=== PATIENT | male | born 1970 | race Caucasian/White ===

== ENCOUNTER 2023-07-25 18:23 | Inpatient (IN) | payer SELFPAY ==
[~2023-07-25] VITALS: Ht 188 cm; Wt 95.7 kg
[2023-07-25] MEDS ORDERED: InsuLIN REG 1unit/0.01ml Soln (100units/ml) IV ONE (19:45)
[2023-07-25] MEDS ORDERED: SODIUM CHLORIDE 0.9% 1,000 ML IV ONE (19:45)
[2023-07-25 20:13] LABS: Basophils # (auto) 0 10 ^3/uL (0-0.2); Basophils % (auto) 0.4 % (0.0-2.0); Eosinophils # (auto) 0 10 ^3/uL (0-0.8); Eosinophils % (auto) 0.2 % (0.0-7.0); Hematocrit 45.4 % (41.0-53.0); Hemoglobin 14.8 g/dL (13.5-17.5); Lymphocytes # (auto) 1.7 10 ^3/uL (0.4-5.4); Lymphocytes % (auto) 15.1 % (10.0-50.0); Mean Corpuscular Hemoglobin 29.3 pg (28.0-32.0); Mean Corpuscular Hgb Conc. 32.6 g/dL (32.0-36.0); Mean Corpuscular Volume 89.8 fL (80.0-100.0); Monocytes # (auto) 0.6 10 ^3/uL (0-1.3); Monocytes % (auto) 4.9 % (0.0-12.0); Neutrophils # (auto) 9.2 10 ^3/uL (1.6-8.6); Neutrophils % (auto) 79.4 % (37.0-80.0); Nucleated Red Blood Cells % 0.1 %; Red Blood Cells 5.05 10^6/uL (4.5-5.90); Red Cell Distribution Width 13.7 % (11.8-14.3); White Blood Cell 11.5 10^3/uL (4.4-10.8)
[2023-07-25 20:29] LABS: Base Excess -3.8 mmol/L (-2.0-2.0)
[2023-07-25 20:31] LABS: Alanine Aminotransferase 21 U/L (7-40); Albumin 4.2 g/dL (3.2-4.8); Alkaline Phosphatase 79 U/L (46-116); Anion Gap 17 (5-15); Aspartate Aminotransferase 13 U/L (13-40); BUN/Creatinine Ratio 19.5 (10.0-20.0); Bilirubin, Total 0.9 mg/dL (0.2-1.0); Blood Urea Nitrogen 25 mg/dL (9-23); Calcium 9.5 mg/dL (8.7-10.4); Carbon Dioxide 15 mmol/L (20-30); Chloride 106 mmol/L (98-107); Glucose 373 mg/dL (74-106); Magnesium 1.9 mg/dL (1.6-2.6); Potassium 3.9 mmol/L (3.5-5.1); Sodium 138 mmol/L (136-145); Total Protein 7.1 g/dL (5.7-8.2)
[2023-07-25] MEDS ORDERED: DEXTROSE (50%) 50ML SYRG IV PRN (21:45)
[2023-07-25] MEDS ORDERED: SODIUM CHLORIDE 0.9% 500 ML IV ONE (21:45)
[2023-07-25] MEDS ORDERED: TEMAZEPAM 15 MG CAP PO PRN (21:45)
[2023-07-25] MEDS ORDERED: SODIUM CHLORIDE 0.9% 1,000 ML IV SCH (21:45)
[2023-07-25] MEDS: ONDANSETRON HCL 4 MG/2 ML VIAL IV PRN (23:38)
[2023-07-25 23:53] VITALS: O2SAT 100
[2023-07-26] MEDS ORDERED: ACCU-CHEK COMFORT CURVE STRIP VI SCH
[2023-07-26] MEDS ORDERED: InsuLIN REG 1unit/0.01ml Soln (100units/ml) SC SCH
[2023-07-26] MEDS ORDERED: INSULIN LANTUS (GLARGINE) 1 /0.01ml (100units/ml) SC ONE (05:45)
[2023-07-26] MEDS ORDERED: INSULIN DRIP 100 UNIT/100ML 100 ML IV SCH (05:45)
[2023-07-26] MEDS ORDERED: DEXTROSE (50%) 50ML SYRG IV PRN ×2 (05:45→13:30)
[2023-07-26] MEDS: ACCU-CHEK COMFORT CURVE STRIP VI SCH ×7 (06:18→21:29)
[2023-07-26] MEDS: ONDANSETRON HCL 4 MG/2 ML VIAL IV PRN (06:19)
[2023-07-26 06:58] LABS: Basophils # (auto) 0 10 ^3/uL (0-0.2); Basophils % (auto) 0.2 % (0.0-2.0); Eosinophils # (auto) 0 10 ^3/uL (0-0.8); Hematocrit 41.6 % (41.0-53.0); Hemoglobin 13.8 g/dL (13.5-17.5); Lymphocytes # (auto) 1.2 10 ^3/uL (0.4-5.4); Lymphocytes % (auto) 12.2 % (10.0-50.0); Mean Corpuscular Hemoglobin 30.1 pg (28.0-32.0); Mean Corpuscular Hgb Conc. 33.1 g/dL (32.0-36.0); Mean Corpuscular Volume 90.8 fL (80.0-100.0); Monocytes # (auto) 0.5 10 ^3/uL (0-1.3); Monocytes % (auto) 5.5 % (0.0-12.0); Neutrophils % (auto) 82.1 % (37.0-80.0); Red Blood Cells 4.58 10^6/uL (4.5-5.90); Red Cell Distribution Width 13.7 % (11.8-14.3); White Blood Cell 9.7 10^3/uL (4.4-10.8)
[2023-07-26 07:03] LABS: Chloride 108 mmol/L (98-107); Potassium 4.1 mmol/L (3.5-5.1); Sodium 141 mmol/L (136-145)
[2023-07-26 07:04] LABS: Anion Gap 12 (5-15); Calcium 8.7 mg/dL (8.7-10.4); Carbon Dioxide 21 mmol/L (20-30)
[2023-07-26 07:09] LABS: BUN/Creatinine Ratio 16.2 (10.0-20.0); Blood Urea Nitrogen 27 mg/dL (9-23)
[2023-07-26 07:12] LABS: Glucose 419 mg/dL (74-106)
[2023-07-26 08:52] VITALS: PULSE 97; RESP 16; O2SAT 95
[2023-07-26] MEDS ORDERED: SODIUM CHLORIDE 0.9% 1,000 ML IV SCH ×2 (09:45→11:45)
[2023-07-26 12:11] LABS: Chloride 111 mmol/L (98-107); Potassium 3.8 mmol/L (3.5-5.1); Sodium 144 mmol/L (136-145)
[2023-07-26 12:12] LABS: Anion Gap 8 (5-15); Carbon Dioxide 25 mmol/L (20-30)
[2023-07-26 12:13] LABS: Calcium 8.5 mg/dL (8.7-10.4)
[2023-07-26 12:17] LABS: BUN/Creatinine Ratio 17.8 (10.0-20.0); Blood Urea Nitrogen 30 mg/dL (9-23)
[2023-07-26 12:18] LABS: Glucose 240 mg/dL (74-106)
[2023-07-26] MEDS: InsuLIN REG 1unit/0.01ml Soln (100units/ml) SC SCH ×2 (17:12→21:24)
[2023-07-26 17:53] LABS: Chloride 111 mmol/L (98-107); Sodium 141 mmol/L (136-145)
[2023-07-26 17:54] LABS: Anion Gap 8 (5-15); Carbon Dioxide 22 mmol/L (20-30)
[2023-07-26 17:55] LABS: Calcium 8.5 mg/dL (8.7-10.4)
[2023-07-26 18:00] LABS: BUN/Creatinine Ratio 18.2 (10.0-20.0); Blood Urea Nitrogen 26 mg/dL (9-23); Glucose 267 mg/dL (74-106)
[2023-07-26 19:30] VITALS: PULSE 93; RESP 14; O2SAT 99
[2023-07-26] MEDS ORDERED: cloNIDine HCL 0.1 MG TAB PO ONE (21:15)
[2023-07-27] VITALS (7 sets, daily range): BP systolic 133–165; BP diastolic 81–102; PULSE 80–86; RESP 14–18; TEMP 80–98.7; O2SAT 97–99
[2023-07-27 05:19] LABS: Urine Bacteria NONE SEEN /hpf (None Seen); Urine Blood TRACE /uL (Negative); Urine Clarity Clear (Clear); Urine Color Yellow (Yellow); Urine Hyaline Cast FEW /lpf (0 - 2); Urine Mucus FEW (None Seen); Urine Protein, UAD 3+ (Negative); Urine Specific Gravity 1.033 (1.001-1.035); Urine Urobilinogen Normal (Negative); Urine WBC 4 /hpf (0 - 3)
[2023-07-27 05:55] LABS: Basophils # (auto) 0 10 ^3/uL (0-0.2); Basophils % (auto) 0.2 % (0.0-2.0); Eosinophils # (auto) 0.1 10 ^3/uL (0-0.8); Hematocrit 40.8 % (41.0-53.0); Hemoglobin 13.3 g/dL (13.5-17.5); Lymphocytes # (auto) 2.8 10 ^3/uL (0.4-5.4); Lymphocytes % (auto) 26.3 % (10.0-50.0); Mean Corpuscular Hemoglobin 29.9 pg (28.0-32.0); Mean Corpuscular Hgb Conc. 32.6 g/dL (32.0-36.0); Mean Corpuscular Volume 91.8 fL (80.0-100.0); Monocytes # (auto) 0.8 10 ^3/uL (0-1.3); Neutrophils % (auto) 65.5 % (37.0-80.0); Red Blood Cells 4.44 10^6/uL (4.5-5.90); Red Cell Distribution Width 14.1 % (11.8-14.3); White Blood Cell 10.7 10^3/uL (4.4-10.8)
[2023-07-27 06:09] LABS: Chloride 110 mmol/L (98-107); Potassium 3.7 mmol/L (3.5-5.1); Sodium 142 mmol/L (136-145)
[2023-07-27 06:10] LABS: Anion Gap 7 (5-15); Calcium 8.7 mg/dL (8.7-10.4); Carbon Dioxide 25 mmol/L (20-30)
[2023-07-27 06:15] LABS: BUN/Creatinine Ratio 20.8 (10.0-20.0); Blood Urea Nitrogen 25 mg/dL (9-23); Glucose 256 mg/dL (74-106)
[2023-07-27 06:16] LABS: Magnesium 2.1 mg/dL (1.6-2.6)
[2023-07-27] MEDS: ACCU-CHEK COMFORT CURVE STRIP VI SCH ×4 (06:30→21:22)
[2023-07-27] MEDS: InsuLIN REG 1unit/0.01ml Soln (100units/ml) SC SCH ×4 (06:32→21:23)
[2023-07-27] MEDS ORDERED: hydrALAZINE HCL 20 MG/ML VL IV ONE (07:15)
[2023-07-27] MEDS: INSULIN LANTUS (GLARGINE) 1 /0.01ml (100units/ml) SC SCH (10:29)
[2023-07-27] MEDS ORDERED: ASPirin 81 mg TAB PO ONE (11:45)
[2023-07-27] MEDS ORDERED: LISINOPRIL 20 MG TAB PO ONE (18:00)
[2023-07-28 04:28] VITALS: BP 129/72; PULSE 86; RESP 16; TEMP 97.5; O2SAT 98
[2023-07-28] MEDS: ACCU-CHEK COMFORT CURVE STRIP VI SCH ×4 (06:14→22:00)
[2023-07-28] MEDS: InsuLIN REG 1unit/0.01ml Soln (100units/ml) SC SCH ×4 (06:14→21:29)
[2023-07-28 06:56] LABS: Triglycerides 211 mg/dL (< 150)
[2023-07-28 06:57] LABS: Cholesterol 240 mg/dL (< 200); LDL Cholesterol 174 mg/dL (< 100)
[2023-07-28 06:58] LABS: HDL Cholesterol 40 mg/dL (40-59)
[2023-07-28 08:00] VITALS: BP 147/87; PULSE 72; PULSE 74; RESP 17; TEMP 97.7; O2SAT 96
[2023-07-28 08:30] VITALS: BP 141/87; PULSE 74; RESP 17; TEMP 97.7; O2SAT 96
[2023-07-28] MEDS: ASPirin 81 mg TAB PO SCH (10:29)
[2023-07-28] MEDS: LISINOPRIL 20 MG TAB PO SCH ×2 (10:29→21:24)
[2023-07-28] MEDS: INSULIN LANTUS (GLARGINE) 1 /0.01ml (100units/ml) SC SCH (10:36)
[2023-07-28 11:19] LABS: Calcium 9.1 mg/dL (8.5-10.1); Chloride 107 mmol/L (98-107); Potassium 3.5 mmol/L (3.5-5.1); Sodium 141 mmol/L (136-145)
[2023-07-28 11:23] LABS: BUN/Creatinine Ratio 17.9 (10.0-20.0); Blood Urea Nitrogen 19 mg/dL (9-23); Glucose 186 mg/dL (74-106)
[2023-07-28] MEDS ORDERED: IOHEXOL 350 MG/ML 100ML IJ ONE (12:07)
[2023-07-28 12:29] LABS: Anion Gap 11 (5-15); Carbon Dioxide 23 mmol/L (20-30)
[2023-07-28 17:09] VITALS: BP 142/80; PULSE 77; RESP 18; TEMP 97.8; O2SAT 97
[2023-07-28 20:00] VITALS: BP 139/90; PULSE 74; PULSE 79; RESP 12; RESP 17; TEMP 98.7; O2SAT 100
[2023-07-28 21:54] VITALS: BP 139/90; PULSE 49; RESP 21; TEMP 97.4; O2SAT 100
[2023-07-29] VITALS (8 sets, daily range): BP systolic 132–141; BP diastolic 80–96; PULSE 69–80; RESP 12–22; TEMP 97.4–98.7; O2SAT 76–100
[2023-07-29] MEDS: InsuLIN REG 1unit/0.01ml Soln (100units/ml) SC SCH ×4 (06:26→21:59)
[2023-07-29] MEDS: ACCU-CHEK COMFORT CURVE STRIP VI SCH ×4 (06:27→21:33)
[2023-07-29] MEDS ORDERED: ATORVASTATIN 20 MG TAB PO ONE (10:15)
[2023-07-29] MEDS: CLOPIDOGREL BISULFATE 75 MG TAB PO SCH (10:58)
[2023-07-29] MEDS: ASPirin 81 mg TAB PO SCH (11:00)
[2023-07-29] MEDS: LISINOPRIL 20 MG TAB PO SCH ×2 (11:00→21:45)
[2023-07-29] MEDS: INSULIN LANTUS (GLARGINE) 1 /0.01ml (100units/ml) SC SCH (11:38)
[2023-07-29] MEDS: ATORVASTATIN 20 MG TAB PO SCH (21:44)
[2023-07-30] VITALS (7 sets, daily range): BP systolic 143–167; BP diastolic 83–99; PULSE 69–82; RESP 17–22; TEMP 97.4–98.4; O2SAT 95–100
[2023-07-30] MEDS: ACCU-CHEK COMFORT CURVE STRIP VI SCH ×4 (05:19→21:55)
[2023-07-30] MEDS: InsuLIN REG 1unit/0.01ml Soln (100units/ml) SC SCH ×4 (05:29→21:55)
[2023-07-30] MEDS: CLOPIDOGREL BISULFATE 75 MG TAB PO SCH (10:01)
[2023-07-30] MEDS: LISINOPRIL 20 MG TAB PO SCH ×2 (10:01→21:56)
[2023-07-30] MEDS: ASPirin 81 mg TAB PO SCH (10:01)
[2023-07-30] MEDS: INSULIN LANTUS (GLARGINE) 1 /0.01ml (100units/ml) SC SCH (10:09)
[2023-07-30] MEDS: ATORVASTATIN 20 MG TAB PO SCH (21:55)
[2023-07-31 05:00] VITALS: BP 153/85; PULSE 68; RESP 17; TEMP 97.7; O2SAT 95
[2023-07-31] MEDS: ACCU-CHEK COMFORT CURVE STRIP VI SCH ×4 (06:11→21:57)
[2023-07-31] MEDS: InsuLIN REG 1unit/0.01ml Soln (100units/ml) SC SCH ×4 (06:13→22:17)
[2023-07-31 08:00] VITALS: BP 153/91; PULSE 72; RESP 22; TEMP 97.8; O2SAT 100
[2023-07-31 09:00] VITALS: BP 137/86; PULSE 79; RESP 17; TEMP 97.9; O2SAT 95
[2023-07-31] MEDS: CLOPIDOGREL BISULFATE 75 MG TAB PO SCH (10:56)
[2023-07-31] MEDS: ASPirin 81 mg TAB PO SCH (10:56)
[2023-07-31] MEDS: LISINOPRIL 20 MG TAB PO SCH ×2 (10:59→21:57)
[2023-07-31] MEDS: INSULIN LANTUS (GLARGINE) 1 /0.01ml (100units/ml) SC SCH (11:07)
[2023-07-31 17:00] VITALS: BP 153/91; PULSE 75; RESP 18; TEMP 98; O2SAT 98
[2023-07-31 20:00] VITALS: BP 154/92; PULSE 72; PULSE 74; PULSE 96; RESP 22; TEMP 97.8; O2SAT 100
[2023-07-31] MEDS: ATORVASTATIN 20 MG TAB PO SCH (21:57)
[2023-07-31 22:00] VITALS: BP 158/100; PULSE 88; RESP 16; TEMP 98.2; O2SAT 98
[2023-08-01] VITALS (7 sets, daily range): BP systolic 110–155; BP diastolic 60–94; PULSE 75–95; RESP 18–22; TEMP 98–99; O2SAT 94–99
[2023-08-01] MEDS: ACCU-CHEK COMFORT CURVE STRIP VI SCH ×4 (06:46→21:25)
[2023-08-01] MEDS: InsuLIN REG 1unit/0.01ml Soln (100units/ml) SC SCH ×4 (06:52→21:30)
[2023-08-01] MEDS: ASPirin 81 mg TAB PO SCH (09:27)
[2023-08-01] MEDS: CLOPIDOGREL BISULFATE 75 MG TAB PO SCH (09:27)
[2023-08-01] MEDS: LISINOPRIL 20 MG TAB PO SCH ×2 (09:28→21:38)
[2023-08-01] MEDS: INSULIN LANTUS (GLARGINE) 1 /0.01ml (100units/ml) SC SCH (09:32)
[2023-08-01] MEDS: ATORVASTATIN 20 MG TAB PO SCH (21:36)
[2023-08-02] VITALS (7 sets, daily range): BP systolic 121–144; BP diastolic 80–90; PULSE 68–79; RESP 17–20; TEMP 97.6–98.6; O2SAT 94–98
[2023-08-02] MEDS: ACCU-CHEK COMFORT CURVE STRIP VI SCH ×4 (05:33→22:00)
[2023-08-02] MEDS: InsuLIN REG 1unit/0.01ml Soln (100units/ml) SC SCH ×4 (05:39→21:42)
[2023-08-02] MEDS: ACETAMINOPHEN 325 MG TAB PO PRN (05:45)
[2023-08-02] MEDS: ASPirin 81 mg TAB PO SCH (09:00)
[2023-08-02] MEDS: CLOPIDOGREL BISULFATE 75 MG TAB PO SCH (09:00)
[2023-08-02] MEDS: LISINOPRIL 20 MG TAB PO SCH ×2 (09:01→21:38)
[2023-08-02] MEDS: INSULIN LANTUS (GLARGINE) 1 /0.01ml (100units/ml) SC SCH (09:04)
[2023-08-02] MEDS: ATORVASTATIN 20 MG TAB PO SCH (21:32)
[2023-08-03 05:00] VITALS: BP 137/87; PULSE 74; RESP 18; TEMP 98.1; O2SAT 97
[2023-08-03] MEDS: ACCU-CHEK COMFORT CURVE STRIP VI SCH ×4 (05:55→21:55)
[2023-08-03] MEDS: InsuLIN REG 1unit/0.01ml Soln (100units/ml) SC SCH ×4 (05:55→22:28)
[2023-08-03 08:00] VITALS: PULSE 72; RESP 20
[2023-08-03] MEDS: ASPirin 81 mg TAB PO SCH (08:41)
[2023-08-03] MEDS: CLOPIDOGREL BISULFATE 75 MG TAB PO SCH (08:41)
[2023-08-03] MEDS: LISINOPRIL 20 MG TAB PO SCH (08:42)
[2023-08-03 09:23] VITALS: BP 141/90; PULSE 74; RESP 20; TEMP 98.2; O2SAT 97
[2023-08-03] MEDS: INSULIN LANTUS (GLARGINE) 1 /0.01ml (100units/ml) SC SCH (09:35)
[2023-08-03] MEDS ORDERED: CLOP75TA70 PO (11:50)
[2023-08-03] MEDS ORDERED: ASPI-325 PO (11:50)
[2023-08-03] MEDS ORDERED: ATO40T PO (11:54)
[2023-08-03] MEDS ORDERED: AMLO1TAB23 PO (11:54)
[2023-08-03] MEDS ORDERED: LISI40TA16 PO (11:54)
[2023-08-03] MEDS ORDERED: INSLANTI SC (11:55)
[2023-08-03] MEDS ORDERED: BLOO1KIT60 XX (11:55)
[2023-08-03] MEDS ORDERED: amLODIPine BESYLATE 5 MG TAB PO ONE (12:00)
[2023-08-03 12:27] VITALS: BP 126/80; PULSE 75; RESP 20; TEMP 98.9; O2SAT 99
[2023-08-03] MEDS: ACETAMINOPHEN 325 MG TAB PO PRN (14:47)
[2023-08-03 16:48] VITALS: BP 189/109; PULSE 82; RESP 20; TEMP 97.9; O2SAT 98
[2023-08-03 20:00] VITALS: BP 157/94; PULSE 75; PULSE 83; RESP 18; TEMP 98
[2023-08-03] MEDS: ATORVASTATIN 20 MG TAB PO SCH (21:52)
[2023-08-04 05:00] VITALS: BP 164/102; PULSE 85; RESP 20; TEMP 98.8; O2SAT 97
[2023-08-04] MEDS ORDERED: hydrALAZINE HCL 20 MG/ML VL IV ONE (05:15)
[2023-08-04] MEDS: InsuLIN REG 1unit/0.01ml Soln (100units/ml) SC SCH ×2 (07:00→12:30)
[2023-08-04] MEDS: ACCU-CHEK COMFORT CURVE STRIP VI SCH ×2 (07:01→12:33)
[2023-08-04 07:04] VITALS: BP 158/83; PULSE 94
[2023-08-04 08:00] VITALS: PULSE 96; RESP 20
[2023-08-04 08:15] VITALS: BP 154/100; PULSE 99; RESP 20; TEMP 97.9; O2SAT 97
[2023-08-04] MEDS: ASPirin 81 mg TAB PO SCH (08:51)
[2023-08-04] MEDS: CLOPIDOGREL BISULFATE 75 MG TAB PO SCH (08:52)
[2023-08-04] MEDS ORDERED: amLODIPine BESYLATE 5 MG TAB PO SCH ×2 (10:00)
[2023-08-04] MEDS ORDERED: LISINOPRIL 20 MG TAB PO SCH (10:00)
[2023-08-04] MEDS: INSULIN LANTUS (GLARGINE) 1 /0.01ml (100units/ml) SC SCH (10:54)
[2023-08-04 12:15] VITALS: BP 145/96; PULSE 90; RESP 20; TEMP 98.2; O2SAT 96
[2023-08-04 14:04] VITALS: BP 140/87; PULSE 90; RESP 18; TEMP 36.8; O2SAT 96
== END 2023-08-04 15:34 | disposition home or self-care (01) | DRG 64 ==
LOC: EDBD 18:23 → EDUNIT# 18:23 → ER 18:23 → OVERFLOW 21:41 → WEST WING 07-27 08:05 → TELE-WESTW 07-27 14:07
PROVIDERS: ADMIT Nurse Practitioner; ATTEND Internal Medicine Geriatric Medicine
DX: I63.9 Cerebral infarction, unspecified (principal); E11.10 Type 2 diabetes mellitus with ketoacidosis without coma; E87.3 Alkalosis; N17.9 Acute kidney failure, unspecified; E86.0 Dehydration; E11.42 Type 2 diabetes mellitus with diabetic polyneuropathy; I10 Essential (primary) hypertension; Z87.891 Personal history of nicotine dependence; R29.810 Facial weakness; Z79.82 Long term (current) use of aspirin; Z86.73 Personal history of transient ischemic attack (TIA), and cerebral infarction without residual deficits; Z79.899 Other long term (current) drug therapy; Z83.3 Family history of diabetes mellitus; Z88.0 Allergy status to penicillin; Z91.148 Patient's other noncompliance with medication regimen for other reason
CPT/HCPCS: 36415; 36600; 70450; 70496; 70551; 71045; 80048; 80053; 80061; 81001; 82010; 82805; 82962; 83605; 83735; 85025; 92507; 92610; 93005; 93306; 93886; 97110; 97116; 97163; 97530; 99291; G0378; J1815; J2405

== ENCOUNTER 2023-10-17 10:51 | Inpatient (IN) | payer MEDICAID ==
[~2023-10-17] VITALS: Ht 188 cm; Wt 102.6 kg
[~2023-10-17 10:51] MED LIST: AMLO1TAB23 PO; ASPI-325 PO; ATO40T PO; BLOO1KIT60 XX; CLOP75TA70 PO; INSLANTI SC; LISI40TA16 PO
[2023-10-17 12:25] LABS: Basophils # (auto) 0.1 10 ^3/uL (0-0.2); Basophils % (auto) 0.7 % (0.0-2.0); Eosinophils # (auto) 0.4 10 ^3/uL (0-0.8); Eosinophils % (auto) 5.8 % (0.0-7.0); Hematocrit 35.4 % (41.0-53.0); Hemoglobin 11.6 g/dL (13.5-17.5); Lymphocytes # (auto) 1.4 10 ^3/uL (0.4-5.4); Lymphocytes % (auto) 17.7 % (10.0-50.0); Mean Corpuscular Hemoglobin 29.4 pg (28.0-32.0); Mean Corpuscular Hgb Conc. 32.7 g/dL (32.0-36.0); Mean Corpuscular Volume 90.2 fL (80.0-100.0); Monocytes # (auto) 0.5 10 ^3/uL (0-1.3); Monocytes % (auto) 6.8 % (0.0-12.0); Neutrophils # (auto) 5.3 10 ^3/uL (1.6-8.6); Red Blood Cells 3.93 10^6/uL (4.5-5.90); Red Cell Distribution Width 13.5 % (11.8-14.3); White Blood Cell 7.6 10^3/uL (4.4-10.8)
[2023-10-17 12:37] LABS: Chloride 112 mmol/L (98-107); Sodium 142 mmol/L (136-145)
[2023-10-17 12:38] LABS: Anion Gap 4 (5-15); Carbon Dioxide 26 mmol/L (20-30)
[2023-10-17 12:39] LABS: Calcium 8.9 mg/dL (8.7-10.4)
[2023-10-17 12:43] LABS: Glucose 248 mg/dL (74-106)
[2023-10-17 12:44] LABS: BUN/Creatinine Ratio 19.5 (10.0-20.0); Blood Urea Nitrogen 23 mg/dL (9-23); Magnesium 2.1 mg/dL (1.6-2.6)
[2023-10-17] MEDS ORDERED: ONDANSETRON HCL 4 MG/2 ML VIAL IV PRN (14:45)
[2023-10-17] MEDS ORDERED: DEXTROSE (50%) 50ML SYRG IV PRN (14:45)
[2023-10-17] MEDS ORDERED: MORPHINE SULFATE INJ 2 MG/ml SYRG IV PRN (14:45)
[2023-10-17] MEDS ORDERED: HYDROcodone-ACET 5/325MG TAB PO PRN (14:45)
[2023-10-17] MEDS ORDERED: NITROGLYCERIN 0.4 MG SL TAB SL PRN (14:45)
[2023-10-17 15:19] LABS: Triglycerides 46 mg/dL (< 150)
[2023-10-17 15:20] LABS: LDL Cholesterol 66 mg/dL (< 100)
[2023-10-17 15:21] LABS: Cholesterol 122 mg/dL (< 200); HDL Cholesterol 47 mg/dL (40-59)
[2023-10-17] MEDS: ACCU-CHEK COMFORT CURVE STRIP VI SCH (20:42)
[2023-10-17] MEDS: InsuLIN REG 1unit/0.01ml Soln (100units/ml) SC SCH (20:42)
[2023-10-17] MEDS: FUROSEMIDE 40 MG/4 ML VIAL IV ONE (20:43)
[2023-10-18] VITALS (9 sets, daily range): BP systolic 132–168; BP diastolic 68–99; PULSE 62–90; RESP 18–20; TEMP 97.9–98.3; O2SAT 93–99
[2023-10-18] MEDS: INSULIN LANTUS (GLARGINE) 1 /0.01ml (100units/ml) SC SCH (03:25)
[2023-10-18] MEDS: LISINOPRIL 10 MG TAB PO SCH (03:26)
[2023-10-18] MEDS: POTASSIUM CHL 10 Meq TABLET PO SCH (03:27)
[2023-10-18] MEDS: ATORVASTATIN 20 MG TAB PO SCH (03:28)
[2023-10-18] MEDS: FUROSEMIDE 40 MG/4 ML VIAL IV SCH (03:28)
[2023-10-18 07:11] LABS: Anion Gap 7 (5-15); Carbon Dioxide 27 mmol/L (20-30); Chloride 111 mmol/L (98-107); Potassium 3.5 mmol/L (3.5-5.1); Sodium 145 mmol/L (136-145)
[2023-10-18 07:12] LABS: Calcium 9.3 mg/dL (8.5-10.1)
[2023-10-18 07:16] LABS: Glucose 173 mg/dL (74-106)
[2023-10-18 07:17] LABS: BUN/Creatinine Ratio 15.6 (10.0-20.0); Blood Urea Nitrogen 19 mg/dL (9-23)
[2023-10-18] MEDS: ASPirin-EC 81 mg tab PO SCH (09:58)
[2023-10-18] MEDS: CLOPIDOGREL BISULFATE 75 MG TAB PO SCH (09:58)
[2023-10-18] MEDS: ENOXAPARIN SOD 40 MG/0.4 ML SYRINGE SC SCH (09:59)
[2023-10-18] MEDS ORDERED: LISINOPRIL 20 MG TAB PO SCH (10:00)
[2023-10-18 10:31] LABS: Urine Bacteria NONE SEEN /hpf (None Seen); Urine Blood TRACE /uL (Negative); Urine Clarity Clear (Clear); Urine Color Colorless (Yellow); Urine Protein, UAD 1+ (Negative); Urine Specific Gravity 1.007 (1.001-1.035); Urine Urobilinogen Normal (Negative); Urine WBC <1 /hpf (0 - 3)
[2023-10-18] MEDS: IOHEXOL 350 MG/ML 100ML IJ ONE (12:07)
[2023-10-18] MEDS ORDERED: METF-370 PO (12:31)
[2023-10-18] MEDS: cloNIDine HCL 0.1 MG TAB PO PRN (15:51)
[2023-10-18] MEDS: NIFEdipine ER 30 MG TAB PO SCH (17:49)
[2023-10-18] MEDS: LISINOPRIL 20 MG TAB PO SCH (21:25)
[2023-10-18 21:38] LABS: Amphetamine Screen, Urine Neg (NEGATIVE); Barbiturate Scree,Urine Neg (NEGATIVE); Benzodiazephine Screen, Urine Neg (NEGATIVE); Cannabinoid Screen, Urine Neg (NEGATIVE); Cocaine Screen, Urine Neg (NEGATIVE); Opiate Scree,Urine Neg (NEGATIVE); Phencyclidine Screen, Urine Neg (NEGATIVE)
[2023-10-18] MEDS ORDERED: LISINOPRIL 10 MG TAB PO SCH (22:00)
[2023-10-19] VITALS (7 sets, daily range): BP systolic 130–157; BP diastolic 72–93; PULSE 79–84; RESP 18–19; TEMP 97.3–98.2; O2SAT 90–97
[2023-10-19 06:18] LABS: Basophils # (auto) 0.1 10 ^3/uL (0-0.2); Basophils % (auto) 0.9 % (0.0-2.0); Eosinophils # (auto) 0.4 10 ^3/uL (0-0.8); Eosinophils % (auto) 5.5 % (0.0-7.0); Hematocrit 34.2 % (41.0-53.0); Hemoglobin 11.1 g/dL (13.5-17.5); Lymphocytes # (auto) 1.6 10 ^3/uL (0.4-5.4); Lymphocytes % (auto) 21.7 % (10.0-50.0); Mean Corpuscular Hemoglobin 28.9 pg (28.0-32.0); Mean Corpuscular Hgb Conc. 32.5 g/dL (32.0-36.0); Mean Corpuscular Volume 88.9 fL (80.0-100.0); Monocytes # (auto) 0.6 10 ^3/uL (0-1.3); Monocytes % (auto) 7.7 % (0.0-12.0); Neutrophils # (auto) 4.7 10 ^3/uL (1.6-8.6); Neutrophils % (auto) 64.2 % (37.0-80.0); Red Blood Cells 3.85 10^6/uL (4.5-5.90); Red Cell Distribution Width 13.4 % (11.8-14.3); White Blood Cell 7.4 10^3/uL (4.4-10.8)
[2023-10-19 06:27] LABS: Anion Gap 8 (5-15); Carbon Dioxide 28 mmol/L (20-30); Chloride 108 mmol/L (98-107); Potassium 3.4 mmol/L (3.5-5.1); Sodium 144 mmol/L (136-145)
[2023-10-19 06:28] LABS: Calcium 9.1 mg/dL (8.5-10.1)
[2023-10-19 06:33] LABS: BUN/Creatinine Ratio 15.9 (10.0-20.0); Blood Urea Nitrogen 20 mg/dL (9-23); Triglycerides 57 mg/dL (< 150)
[2023-10-19 06:34] LABS: LDL Cholesterol 57 mg/dL (< 100)
[2023-10-19 06:35] LABS: Cholesterol 109 mg/dL (< 200); HDL Cholesterol 39 mg/dL (40-59)
[2023-10-19 06:40] LABS: Glucose 73 mg/dL (74-106)
[2023-10-19] MEDS: levoFLOXacin 500MG 100 ML IV SCH (09:08)
[2023-10-19] MEDS: POTASSIUM CHL 10 Meq TABLET PO SCH (22:40)
[2023-10-20 05:00] VITALS: BP 118/66; PULSE 77; RESP 17; TEMP 98.4; O2SAT 95
[2023-10-20 07:44] VITALS: BP 148/89; PULSE 80; RESP 18; TEMP 98.2; O2SAT 100
[2023-10-20 08:00] VITALS: PULSE 81
[2023-10-20 11:38] VITALS: BP 148/82; PULSE 84; RESP 16; TEMP 98.4; O2SAT 94
[2023-10-20] MEDS ORDERED: CLOP75TA70 PO (15:03)
[2023-10-20] MEDS ORDERED: DOXY-448 PO (15:03)
[2023-10-20] MEDS ORDERED: METF-370 PO (15:03)
[2023-10-20] MEDS ORDERED: ATO40T PO (15:03)
[2023-10-20] MEDS ORDERED: FURO40TA4 PO (15:03)
[2023-10-20] MEDS ORDERED: NIFE1TAB31 PO (15:03)
[2023-10-20] MEDS ORDERED: LISI40TA16 PO (15:03)
[2023-10-20] MEDS ORDERED: INSLANTI SC (15:03)
[2023-10-20] MEDS ORDERED: ASPI-325 PO (15:03)
[2023-10-20 15:32] VITALS: BP 148/89; TEMP 36.9
[2023-10-21] MEDS ORDERED: INSLANTI SC (16:26)
== END 2023-10-20 16:15 | disposition home or self-care (01) | DRG 194 ==
LOC: ER 10:51 → TELE 14:48 → TELE-E-ADS 10-18 10:15 → TELE-EAST 10-18 17:01
PROVIDERS: ADMIT Hospitalist; ATTEND Hospitalist
DX: I13.0 Hypertensive heart and chronic kidney disease with heart failure and stage 1 through stage 4 chronic kidney disease, or unspecified chronic kidney disease (principal); E11.22 Type 2 diabetes mellitus with diabetic chronic kidney disease; E11.65 Type 2 diabetes mellitus with hyperglycemia; E78.5 Hyperlipidemia, unspecified; N18.9 Chronic kidney disease, unspecified; Z86.73 Personal history of transient ischemic attack (TIA), and cerebral infarction without residual deficits; Z88.0 Allergy status to penicillin; Z79.899 Other long term (current) drug therapy; Z79.82 Long term (current) use of aspirin; Z79.4 Long term (current) use of insulin; Z79.84 Long term (current) use of oral hypoglycemic drugs; Z87.891 Personal history of nicotine dependence; I50.22 Chronic systolic (congestive) heart failure; R22.43 Localized swelling, mass and lump, lower limb, bilateral
CPT/HCPCS: 36415; 71046; 71275; 80048; 80061; 80307; 81001; 82962; 83036; 83735; 83880; 84484; 85025; 85379; 93005; 93306; 93970; 97116; 97163; 97530; G0378; J1815; J1956

== ENCOUNTER 2024-02-27 15:45 | Emergency (ER) | payer MEDICAID ==
[~2024-02-27] VITALS: Ht 188 cm; Wt 96.8 kg
[~2024-02-27 15:45] MED LIST changes: -AMLO1TAB23 PO; -ATO40T PO; +ATOR-507 PO; +DOXY-448 PO; +FURO40TA4 PO; +METF-370 PO; +NIFE1TAB31 PO
[2024-02-27] MEDS: SODIUM CHLORIDE 0.9% 500 ML IV ONE (18:36)
[2024-02-27] MEDS: ACETAMINOPHEN 325 MG TAB PO ONE (19:03)
[2024-02-27 19:45] VITALS: PULSE 87; RESP 10; O2SAT 92
[2024-02-27 20:20] LABS: Basophils # (auto) 0 10 ^3/uL (0-0.2); Basophils % (auto) 0.3 % (0.0-2.0); Eosinophils # (auto) 0 10 ^3/uL (0-0.8); Eosinophils % (auto) 0.1 % (0.0-7.0); Hematocrit 29.3 % (41.0-53.0); Hemoglobin 9.8 g/dL (13.5-17.5); Lymphocytes % (auto) 8.7 % (10.0-50.0); Mean Corpuscular Hemoglobin 29.3 pg (28.0-32.0); Mean Corpuscular Hgb Conc. 33.4 g/dL (32.0-36.0); Mean Corpuscular Volume 87.7 fL (80.0-100.0); Monocytes % (auto) 8.6 % (0.0-12.0); Neutrophils # (auto) 9.2 10 ^3/uL (1.6-8.6); Neutrophils % (auto) 82.3 % (37.0-80.0); Red Blood Cells 3.34 10^6/uL (4.5-5.90); Red Cell Distribution Width 15.3 % (11.8-14.3); White Blood Cell 11.2 10^3/uL (4.4-10.8)
[2024-02-27 20:48] LABS: Alanine Aminotransferase 20 U/L (7-40); Albumin 3.6 g/dL (3.2-4.8); Alkaline Phosphatase 62 U/L (46-116); Anion Gap 15 (5-15); Aspartate Aminotransferase 12 U/L (13-40); BUN/Creatinine Ratio 20.6 (10.0-20.0); Blood Urea Nitrogen 51 mg/dL (9-23); Calcium 8.5 mg/dL (8.7-10.4); Carbon Dioxide 15 mmol/L (20-30); Chloride 107 mmol/L (98-107); Glucose 256 mg/dL (74-106); Potassium 4.2 mmol/L (3.5-5.1); Sodium 137 mmol/L (136-145)
[2024-02-27 20:49] LABS: Bilirubin, Total 0.7 mg/dL (0.2-1.0); Total Protein 5.9 g/dL (5.7-8.2)
[2024-02-27 23:40] VITALS: BP 92/52; PULSE 70; RESP 26; TEMP 98.2; O2SAT 95
== END 2024-02-27 23:59 | disposition short-term general hospital (02) ==
LOC: ER 15:45
DX: T25.222A Burn of second degree of left foot, initial encounter (principal); T25.221A Burn of second degree of right foot, initial encounter; R50.9 Fever, unspecified; L03.116 Cellulitis of left lower limb; L03.115 Cellulitis of right lower limb; E11.9 Type 2 diabetes mellitus without complications; Z88.0 Allergy status to penicillin; Z79.82 Long term (current) use of aspirin; Z79.4 Long term (current) use of insulin; Z79.84 Long term (current) use of oral hypoglycemic drugs; Z79.899 Other long term (current) drug therapy; Z86.73 Personal history of transient ischemic attack (TIA), and cerebral infarction without residual deficits; Z98.890 Other specified postprocedural states; X08.8XXA Exposure to other specified smoke, fire and flames, initial encounter; Y93.89 Activity, other specified; Y92.89 Other specified places as the place of occurrence of the external cause; Y99.8 Other external cause status
CPT/HCPCS: 36415; 80053; 83605; 85025; 87040; 96360; 99285; J7040

== ENCOUNTER 2024-03-05 20:22 | Inpatient (IN) | payer MEDICAID ==
[~2024-03-05] VITALS: Ht 182.9 cm; Wt 94.0 kg
[2024-03-05 21:41] LABS: Basophils # (auto) 0 10 ^3/uL (0-0.2); Basophils % (auto) 0.3 % (0.0-2.0); Eosinophils # (auto) 0.1 10 ^3/uL (0-0.8); Eosinophils % (auto) 0.5 % (0.0-7.0); Hematocrit 27.8 % (41.0-53.0); Hemoglobin 9.2 g/dL (13.5-17.5); Lymphocytes # (auto) 0.6 10 ^3/uL (0.4-5.4); Lymphocytes % (auto) 4.2 % (10.0-50.0); Mean Corpuscular Hemoglobin 29.2 pg (28.0-32.0); Mean Corpuscular Hgb Conc. 33.1 g/dL (32.0-36.0); Mean Corpuscular Volume 88.3 fL (80.0-100.0); Monocytes # (auto) 0.7 10 ^3/uL (0-1.3); Monocytes % (auto) 4.9 % (0.0-12.0); Neutrophils # (auto) 12.8 10 ^3/uL (1.6-8.6); Neutrophils % (auto) 90.1 % (37.0-80.0); Red Blood Cells 3.15 10^6/uL (4.5-5.90); Red Cell Distribution Width 15.1 % (11.8-14.3); White Blood Cell 14.1 10^3/uL (4.4-10.8)
[2024-03-05 21:52] LABS: Alanine Aminotransferase 39 U/L (7-40); Alkaline Phosphatase 106 U/L (46-116); Anion Gap 8 (5-15); Aspartate Aminotransferase 18 U/L (13-40); BUN/Creatinine Ratio 19.4 (10.0-20.0); Blood Urea Nitrogen 37 mg/dL (9-23); Calcium 8.9 mg/dL (8.7-10.4); Carbon Dioxide 20 mmol/L (20-30); Chloride 110 mmol/L (98-107); Glucose 138 mg/dL (74-106); Potassium 4.1 mmol/L (3.5-5.1); Sodium 138 mmol/L (136-145)
[2024-03-05 21:53] LABS: Bilirubin, Total 0.4 mg/dL (0.2-1.0); Total Protein 6.9 g/dL (5.7-8.2)
[2024-03-05] MEDS: ACETAMINOPHEN 500 MG TAB PO ONE (23:18)
[2024-03-05 23:30] VITALS: PULSE 73; RESP 14; O2SAT 97
[2024-03-05 23:59] LABS: COVID19 ANTIGEN SOFIA FIA NEGATIVE (NEGATIVE); Rapid Influenza A Negative (Negative); Rapid Influenza B Negative (Negative)
[2024-03-06] VITALS (20 sets, daily range): BP systolic 123–155; BP diastolic 65–86; PULSE 49–82; RESP 11–24; TEMP 97.2–97.4; O2SAT 96–100
[2024-03-06] MEDS ORDERED: PIPERACILLIN-TAZOB 3.375GM 100 ML IV ONE (00:15)
[2024-03-06] MEDS ORDERED: VANCOMYCIN 1GM/200ML 200 ML IV ONE (00:15)
[2024-03-06] MEDS ORDERED: ACETAMINOPHEN 325 MG TAB PO PRN (00:30)
[2024-03-06] MEDS ORDERED: NITROGLYCERIN 0.4 MG SL TAB SL PRN (00:30)
[2024-03-06] MEDS ORDERED: MORPHINE SULFATE INJ 2 MG/ml SYRG IV PRN (00:30)
[2024-03-06] MEDS ORDERED: ONDANSETRON HCL 4 MG/2 ML VIAL IV PRN (00:30)
[2024-03-06] MEDS ORDERED: HEPARIN DRIP/D5W 100UNITS/ML 250 ML IV SCH (00:45)
[2024-03-06 00:56] LABS: Basophils # (auto) 0 10 ^3/uL (0-0.2); Basophils % (auto) 0.3 % (0.0-2.0); Eosinophils # (auto) 0 10 ^3/uL (0-0.8); Eosinophils % (auto) 0.2 % (0.0-7.0); Hematocrit 25.6 % (41.0-53.0); Hemoglobin 8.4 g/dL (13.5-17.5); Lymphocytes # (auto) 0.9 10 ^3/uL (0.4-5.4); Lymphocytes % (auto) 5.8 % (10.0-50.0); Mean Corpuscular Hemoglobin 28.8 pg (28.0-32.0); Mean Corpuscular Hgb Conc. 32.7 g/dL (32.0-36.0); Mean Corpuscular Volume 88.1 fL (80.0-100.0); Monocytes # (auto) 1.1 10 ^3/uL (0-1.3); Neutrophils # (auto) 13.9 10 ^3/uL (1.6-8.6); Neutrophils % (auto) 86.7 % (37.0-80.0); Red Cell Distribution Width 14.7 % (11.8-14.3)
[2024-03-06] MEDS: FUROSEMIDE 40 MG/4 ML VIAL IV ONE (01:00)
[2024-03-06] MEDS: VANCOMYCIN 1GM/200ML 200 ML IV ONE (01:04)
[2024-03-06] MEDS: ASPirin-EC 325mg tab PO ONE (01:11)
[2024-03-06] MEDS: ENOXAPARIN SOD 100 MG/1 ML SYRINGE SC ONE (01:12)
[2024-03-06 01:13] LABS: INR 1.1 (0.9-1.15); Prothrombin Time 11.6 sec (9.3-11.8)
[2024-03-06] MEDS ORDERED: DEXTROSE (50%) 50ML SYRG IV PRN (05:30)
[2024-03-06 06:08] LABS: % Iron Saturation 7.3 % (20-55)
[2024-03-06 07:21] LABS: Anion Gap 8 (5-15); Carbon Dioxide 20 mmol/L (20-30); Chloride 111 mmol/L (98-107); Potassium 3.9 mmol/L (3.5-5.1); Sodium 139 mmol/L (136-145)
[2024-03-06 07:22] LABS: Calcium 8.7 mg/dL (8.7-10.4)
[2024-03-06 07:27] LABS: BUN/Creatinine Ratio 19.4 (10.0-20.0); Blood Urea Nitrogen 38 mg/dL (9-23); Glucose 156 mg/dL (74-106)
[2024-03-06] MEDS: InsuLIN REG 1unit/0.01ml Soln (100units/ml) SC SCH (07:30)
[2024-03-06] MEDS: ACCU-CHEK COMFORT CURVE STRIP VI SCH (07:30)
[2024-03-06] MEDS ORDERED: cefTRIAXone 1GM/50ML D5W 50 ML IV SCH (10:00)
[2024-03-06] MEDS: ASCORBIC ACID 500 MG TAB PO SCH (10:01)
[2024-03-06] MEDS: levoFLOXacin 500MG 100 ML IV SCH (10:01)
[2024-03-06] MEDS: ASPirin 81 mg TAB PO SCH (10:01)
[2024-03-06] MEDS: ZINC SULFATE 220mg CAP or TAB PO SCH (10:01)
[2024-03-06] MEDS: PANTOPRAZOLE 40 MG/10 ML VIAL INJ IV SCH (10:01)
[2024-03-06] MEDS: SODIUM CHLORIDE 0.9% 1,000 ML IV ONE (11:13)
[2024-03-06] MEDS: HEPARIN DRIP/D5W 100UNITS/ML 250 ML IV SCH ×2 (13:33→20:40)
[2024-03-06 19:34] LABS: INR 1.13 (0.9-1.15); Partial Thromboplastin Time 37.9 SEC (24.5-34.5); Prothrombin Time 11.9 sec (9.3-11.8)
[2024-03-06 20:01] LABS: Urine Bacteria None Seen /hpf (None Seen)
[2024-03-06 20:27] LABS: Urine Blood Negative /uL (Negative); Urine Clarity Clear (Clear); Urine Color Light-Yellow (Yellow); Urine Hyaline Cast FEW /lpf (0 - 2); Urine Mucus FEW (None Seen); Urine Protein, UAD 2+ (Negative); Urine Urobilinogen Normal (Negative); Urine WBC 2 /hpf (0 - 3); Urine pH 5.5 (5.0-9.0)
[2024-03-06 20:29] LABS: Creatinine, Urine 99.02 mg/dL (30.0-125.0)
[2024-03-06] MEDS: ATORVASTATIN 20 MG TAB PO SCH (20:40)
[2024-03-07] VITALS (26 sets, daily range): BP systolic 132–166; BP diastolic 60–93; PULSE 65–87; RESP 11–21; TEMP 97.1–98.7; O2SAT 94–98
[2024-03-07 03:12] LABS: INR 1.13 (0.9-1.15); Partial Thromboplastin Time 37.7 SEC (24.5-34.5); Prothrombin Time 11.9 sec (9.3-11.8)
[2024-03-07] MEDS: HYDROcodone-ACET 5/325MG TAB PO PRN (04:07)
[2024-03-07] MEDS: HEPARIN DRIP/D5W 100UNITS/ML 250 ML IV SCH ×2 (04:19→11:47)
[2024-03-07 05:26] LABS: Basophils # (auto) 0.1 10 ^3/uL (0-0.2); Basophils % (auto) 0.4 % (0.0-2.0); Eosinophils # (auto) 0.1 10 ^3/uL (0-0.8); Eosinophils % (auto) 0.7 % (0.0-7.0); Hematocrit 24.4 % (41.0-53.0); Hemoglobin 8.1 g/dL (13.5-17.5); Lymphocytes # (auto) 1.8 10 ^3/uL (0.4-5.4); Lymphocytes % (auto) 12.4 % (10.0-50.0); Mean Corpuscular Hemoglobin 28.9 pg (28.0-32.0); Mean Corpuscular Hgb Conc. 33.1 g/dL (32.0-36.0); Mean Corpuscular Volume 87.1 fL (80.0-100.0); Monocytes # (auto) 0.7 10 ^3/uL (0-1.3); Monocytes % (auto) 5.1 % (0.0-12.0); Neutrophils # (auto) 11.5 10 ^3/uL (1.6-8.6); Neutrophils % (auto) 81.4 % (37.0-80.0); White Blood Cell 14.2 10^3/uL (4.4-10.8)
[2024-03-07 05:27] LABS: Chloride 112 mmol/L (98-107); Potassium 3.9 mmol/L (3.5-5.1); Sodium 141 mmol/L (136-145)
[2024-03-07 05:28] LABS: Anion Gap 7 (5-15); Calcium 8.7 mg/dL (8.7-10.4); Carbon Dioxide 22 mmol/L (20-30)
[2024-03-07 05:33] LABS: BUN/Creatinine Ratio 21.5 (10.0-20.0); Blood Urea Nitrogen 29 mg/dL (9-23); Glucose 123 mg/dL (74-106)
[2024-03-07] MEDS: hydrALAZINE HCL 20 MG/ML VL IV PRN (05:53)
[2024-03-07] MEDS: hydrALAZINE HCL 20 MG/ML VL ONE (06:03)
[2024-03-07] MEDS ORDERED: NIFE90TA75 PO (10:44)
[2024-03-07] MEDS ORDERED: INSLANTI SC (10:45)
[2024-03-07] MEDS ORDERED: POTA-180 PO (10:47)
[2024-03-07] MEDS ORDERED: METO25TA93 PO (10:47)
[2024-03-07 11:02] LABS: INR 1.16 (0.9-1.15); Partial Thromboplastin Time 47.6 SEC (24.5-34.5); Prothrombin Time 12.2 sec (9.3-11.8)
[2024-03-08] VITALS (8 sets, daily range): BP systolic 128–179; BP diastolic 61–95; PULSE 64–85; RESP 17–20; TEMP 98–98.5; O2SAT 95–97
[2024-03-08 06:20] LABS: Chloride 111 mmol/L (98-107); Potassium 3.9 mmol/L (3.5-5.1); Sodium 141 mmol/L (136-145)
[2024-03-08 06:21] LABS: Anion Gap 8 (5-15); Calcium 8.9 mg/dL (8.7-10.4); Carbon Dioxide 22 mmol/L (20-30)
[2024-03-08 06:27] LABS: BUN/Creatinine Ratio 19.2 (10.0-20.0); Blood Urea Nitrogen 24 mg/dL (9-23); Glucose 192 mg/dL (74-106)
[2024-03-08 06:31] LABS: Basophils # (auto) 0 10 ^3/uL (0-0.2); Basophils % (auto) 0.3 % (0.0-2.0); Eosinophils # (auto) 0.1 10 ^3/uL (0-0.8); Eosinophils % (auto) 1.3 % (0.0-7.0); Hematocrit 24.5 % (41.0-53.0); Hemoglobin 8.3 g/dL (13.5-17.5); Lymphocytes # (auto) 1.6 10 ^3/uL (0.4-5.4); Lymphocytes % (auto) 15.2 % (10.0-50.0); Mean Corpuscular Hemoglobin 29.8 pg (28.0-32.0); Mean Corpuscular Volume 87.7 fL (80.0-100.0); Monocytes # (auto) 0.6 10 ^3/uL (0-1.3); Monocytes % (auto) 5.9 % (0.0-12.0); Neutrophils % (auto) 77.3 % (37.0-80.0); Red Blood Cells 2.79 10^6/uL (4.5-5.90); Red Cell Distribution Width 14.7 % (11.8-14.3); White Blood Cell 10.3 10^3/uL (4.4-10.8)
[2024-03-08] MEDS: ADENOSINE 86 MG in GIVE UN-DILUTED 0 ML IV ONE (14:23)
[2024-03-08] MEDS: SPIRONOLACTONE 25 MG TAB PO SCH (16:04)
[2024-03-09] VITALS (8 sets, daily range): BP systolic 157–168; BP diastolic 88–98; PULSE 74–90; RESP 18–20; TEMP 97.8–98.6; O2SAT 95–98
[2024-03-09 06:12] LABS: Basophils # (auto) 0.1 10 ^3/uL (0-0.2); Basophils % (auto) 0.4 % (0.0-2.0); Eosinophils # (auto) 0.2 10 ^3/uL (0-0.8); Eosinophils % (auto) 1.5 % (0.0-7.0); Hematocrit 25.9 % (41.0-53.0); Hemoglobin 8.6 g/dL (13.5-17.5); Lymphocytes # (auto) 1.6 10 ^3/uL (0.4-5.4); Lymphocytes % (auto) 12.9 % (10.0-50.0); Mean Corpuscular Hemoglobin 29.2 pg (28.0-32.0); Mean Corpuscular Hgb Conc. 33.2 g/dL (32.0-36.0); Monocytes # (auto) 0.7 10 ^3/uL (0-1.3); Monocytes % (auto) 5.6 % (0.0-12.0); Neutrophils # (auto) 9.6 10 ^3/uL (1.6-8.6); Neutrophils % (auto) 79.6 % (37.0-80.0); Red Blood Cells 2.94 10^6/uL (4.5-5.90); Red Cell Distribution Width 14.9 % (11.8-14.3); White Blood Cell 12.1 10^3/uL (4.4-10.8)
[2024-03-09 06:18] LABS: Chloride 110 mmol/L (98-107); Potassium 3.9 mmol/L (3.5-5.1); Sodium 141 mmol/L (136-145)
[2024-03-09 06:19] LABS: Anion Gap 9 (5-15); Calcium 8.9 mg/dL (8.7-10.4); Carbon Dioxide 22 mmol/L (20-30)
[2024-03-09 06:24] LABS: BUN/Creatinine Ratio 15.9 (10.0-20.0); Blood Urea Nitrogen 18 mg/dL (9-23); Glucose 156 mg/dL (74-106)
[2024-03-10] VITALS (8 sets, daily range): BP systolic 138–171; BP diastolic 72–97; PULSE 75–85; RESP 16–20; TEMP 97.6–98.6; O2SAT 95–98
[2024-03-11] VITALS (8 sets, daily range): BP systolic 136–169; BP diastolic 73–100; PULSE 71–96; RESP 17–20; TEMP 97.8–98.3; O2SAT 95–99
[2024-03-11 07:35] LABS: Alanine Aminotransferase 26 U/L (7-40); Albumin 3.6 g/dL (3.2-4.8); Alkaline Phosphatase 100 U/L (46-116); Anion Gap 8 (5-15); BUN/Creatinine Ratio 15.7 (10.0-20.0); Blood Urea Nitrogen 18 mg/dL (9-23); Calcium 9.6 mg/dL (8.7-10.4); Carbon Dioxide 24 mmol/L (20-30); Chloride 109 mmol/L (98-107); Glucose 169 mg/dL (74-106); Sodium 141 mmol/L (136-145)
[2024-03-11 07:36] LABS: Aspartate Aminotransferase 12 U/L (13-40); Bilirubin, Total 0.3 mg/dL (0.2-1.0); Total Protein 6.4 g/dL (5.7-8.2)
[2024-03-11] MEDS ORDERED: DOCUSATE CALCIUM 240 MG CAP PO PRN (15:45)
[2024-03-11] MEDS: LACTULOSE 20Gm/30ML SOLN PO ONE (17:01)
[2024-03-11] MEDS: ENOXAPARIN SOD 40 MG/0.4 ML SYRINGE SC ONE (23:30)
[2024-03-12] VITALS (13 sets, daily range): BP systolic 116–177; BP diastolic 79–93; PULSE 16–94; RESP 12–20; TEMP 97.6–98.7; O2SAT 95–98
[2024-03-12] MEDS: HEPARIN SODIUM (PORCINE) 5000 UNITS/ML 1ML VIAL ONE (07:35)
[2024-03-12] MEDS: VERAPAMIL 2.5MG/ML INJ 2ML VIAL IV ONE (07:35)
[2024-03-12] MEDS: fentaNYL CITRATE 100 MCG/2 ML VL ONE (07:35)
[2024-03-12] MEDS: NITROGLYCERIN 50MG/250ML 250 ML IV ONE (07:36)
[2024-03-12] MEDS: LIDOCAINE 2%HCL (LOCAL ANESTH.) INJ 20ML MDV ONE (07:36)
[2024-03-12] MEDS: MIDAZOLAM HCL 2MG/2ML 2ml VIAL (1mg/ml) ONE (07:36)
[2024-03-12] MEDS: HEPARIN IN NS 1000Units/500mL 1,500 ML ONE (07:37)
[2024-03-12] MEDS: IODIXANOL 320MG/ML 100ML BTL IV ONE ×3 (07:37→10:49)
[2024-03-12] MEDS: ATROPINE SULF 1 MG/10ml SYR ONE (10:27)
[2024-03-12] MEDS: ANGIOMAX 250 MG VIAL IV ONE (10:49)
[2024-03-12] MEDS: SODIUM CHL 0.9% 50 ML ONE (10:49)
[2024-03-12] MEDS: ASPirin 325 MG TAB ONE (11:06)
[2024-03-12] MEDS: CLOPIDOGREL BISULFATE 75 MG TAB ONE (11:06)
[2024-03-12] MEDS: ENOXAPARIN SOD 40 MG/0.4 ML SYRINGE SC SCH (21:05)
[2024-03-13] VITALS (8 sets, daily range): BP systolic 145–160; BP diastolic 75–91; PULSE 77–83; RESP 17–20; TEMP 97.7–98.4; O2SAT 93–97
[2024-03-13] MEDS: CLOPIDOGREL BISULFATE 75 MG TAB PO SCH (09:26)
[2024-03-13] MEDS: CARVEDILOL 3.125 MG TAB PO SCH (22:00)
[2024-03-14 01:00] VITALS: BP 140/86; PULSE 83; RESP 20; TEMP 98.5; O2SAT 95
[2024-03-14 05:00] VITALS: BP 140/84; PULSE 74; RESP 20; TEMP 98.4; O2SAT 96
[2024-03-14 08:00] VITALS: PULSE 73
[2024-03-14 09:00] VITALS: BP 144/86; PULSE 75; RESP 16; TEMP 98; O2SAT 96
[2024-03-14] MEDS: LISINOPRIL 5 MG TAB PO SCH (09:04)
[2024-03-14] MEDS ORDERED: ASPI-325 PO (10:00)
[2024-03-14] MEDS ORDERED: ATOR-507 PO (10:00)
[2024-03-14] MEDS ORDERED: CLOP75TA70 PO (10:00)
[2024-03-14] MEDS ORDERED: METO25TA93 PO (10:05)
[2024-03-14 10:11] LABS: Basophils # (auto) 0.1 10 ^3/uL (0-0.2); Basophils % (auto) 0.6 % (0.0-2.0); Hemoglobin 9.7 g/dL (13.5-17.5); Lymphocytes # (auto) 1.7 10 ^3/uL (0.4-5.4); Monocytes # (auto) 0.7 10 ^3/uL (0-1.3)
[2024-03-14 10:12] LABS: Eosinophils # (auto) 0.2 10 ^3/uL (0-0.8); Eosinophils % (auto) 2.5 % (0.0-7.0); Lymphocytes % (auto) 17.3 % (10.0-50.0); Mean Corpuscular Hemoglobin 28.7 pg (28.0-32.0); Mean Corpuscular Hgb Conc. 32.4 g/dL (32.0-36.0); Mean Corpuscular Volume 88.5 fL (80.0-100.0); Monocytes % (auto) 7.3 % (0.0-12.0); Neutrophils # (auto) 7.2 10 ^3/uL (1.6-8.6); Neutrophils % (auto) 72.3 % (37.0-80.0); Red Blood Cells 3.39 10^6/uL (4.5-5.90); Red Cell Distribution Width 14.8 % (11.8-14.3); White Blood Cell 9.9 10^3/uL (4.4-10.8)
[2024-03-14 10:22] LABS: Chloride 108 mmol/L (98-107); Sodium 141 mmol/L (136-145)
[2024-03-14 10:23] LABS: Anion Gap 6 (5-15); Calcium 9.2 mg/dL (8.7-10.4); Carbon Dioxide 27 mmol/L (20-30)
[2024-03-14 10:28] LABS: BUN/Creatinine Ratio 13.1 (10.0-20.0); Blood Urea Nitrogen 17 mg/dL (9-23); Glucose 173 mg/dL (74-106)
[2024-03-14 10:29] LABS: Magnesium 1.9 mg/dL (1.6-2.6)
[2024-03-14 11:40] VITALS: BP 144/86; PULSE 75; RESP 16; TEMP 98; O2SAT 96
== END 2024-03-14 13:13 | disposition home health service (06) | DRG 710 ==
LOC: ER 20:22 → EDBD 20:22 → TELE 03-06 00:34 → DOU IN ICU 03-06 06:11 → TELE-WESTW 03-07 23:28
PROVIDERS: ADMIT Nurse Practitioner Family; ATTEND Internal Medicine
PROC: 027137Z Dilation of Coronary Artery, Two Arteries with Four or More Drug-eluting Intraluminal Devices, Percutaneous Approach (ICD-10-PCS; principal; 2024-03-12)
PROC: 4A023N7 Measurement of Cardiac Sampling and Pressure, Left Heart, Percutaneous Approach (ICD-10-PCS; 2024-03-12)
PROC: B211YZZ Fluoroscopy of Multiple Coronary Arteries using Other Contrast (ICD-10-PCS; 2024-03-12)
PROC: B215YZZ Fluoroscopy of Left Heart using Other Contrast (ICD-10-PCS; 2024-03-12)
DX: A41.9 Sepsis, unspecified organism (principal); I21.4 Non-ST elevation (NSTEMI) myocardial infarction; N17.9 Acute kidney failure, unspecified; L03.115 Cellulitis of right lower limb; I13.0 Hypertensive heart and chronic kidney disease with heart failure and stage 1 through stage 4 chronic kidney disease, or unspecified chronic kidney disease; I50.9 Heart failure, unspecified; L03.116 Cellulitis of left lower limb; T25.021A Burn of unspecified degree of right foot, initial encounter; Z20.822 Contact with and (suspected) exposure to COVID-19; S91.301A Unspecified open wound, right foot, initial encounter; E11.22 Type 2 diabetes mellitus with diabetic chronic kidney disease; T25.022A Burn of unspecified degree of left foot, initial encounter; D50.9 Iron deficiency anemia, unspecified; S91.302A Unspecified open wound, left foot, initial encounter; E86.9 Volume depletion, unspecified; N18.2 Chronic kidney disease, stage 2 (mild); Z86.73 Personal history of transient ischemic attack (TIA), and cerebral infarction without residual deficits; Z79.84 Long term (current) use of oral hypoglycemic drugs; X08.8XXA Exposure to other specified smoke, fire and flames, initial encounter; Y93.89 Activity, other specified; Y92.89 Other specified places as the place of occurrence of the external cause; Y99.8 Other external cause status
CPT/HCPCS: 36415; 71045; 76775; 78452; 80048; 80053; 81001; 82270; 82570; 82962; 83540; 83550; 83605; 83735; 83880; 84300; 84484; 85025; 85610; 85730; 86850; 86900; 86901; 87040; 87081; 87426; 87804; 92928; 92941; 93005; 93017; 93306; 93458; 93970; 96365; 96372; 96375; 99152; 99291; G0378; J0153; J1815; J1956; J2250; J2470; Q9967